=== PATIENT | female | born 1950 | race Caucasian/White ===

== ENCOUNTER → 2016-06-24 | Outpatient (CLI) | payer OTHER ==
--- NOTE | 2016-06-24 10:18 | MA ---
Screening Digital Mammogram With iCAD Analysis Clinical Indications: Routine screening. A daughter was diagnosed with breast cancer in her 40s. Technique: Standard cephalocaudal and mediolateral oblique projections were obtained. This examinatio n was processed by the iCAD computer aided detection system. Comparison: February 2015, January 2014, December 2012, September 2011, September 2010, September 2009, September 2008. Breast density: Type B; Scattered fibroglandular densities. Findings: CAD was reviewed. There is possible developing nodular opacity in the central anterior righ t breast. No suspicious microcalcifications are seen. The left breast is stable in appearance. Impression: Possible developing right breast nodule requires further evaluation, BI-RADS 0. Recommendation: Spot compression assessment of the right breast with ultrasound suggested if the abno rmality persists on diagnostic evaluation. [facility]–1983 will send a result letter to the patient. Negative mammography should not preclude additional workup of a clinically suspicious finding. The patient's information is entered into a reminder system with a target due date for her next mammo gram.
== END ==
LOC: BRMIMAGING 08:15
DX: Z12.31 Encounter for screening mammogram for malignant neoplasm of breast (principal); R92.8 Other abnormal and inconclusive findings on diagnostic imaging of breast; Z80.3 Family history of malignant neoplasm of breast
CPT/HCPCS: G0202

== ENCOUNTER → 2016-07-07 | Outpatient (CLI) | payer OTHER ==
--- NOTE | 2016-07-07 10:01 | US ---
1. Diagnostic Digital Right Mammogram with CAD History: Focal asymmetry retroareolar right breast. Daughter with breast cancer at age 42. Comparison: Screening mammogram June 24, 2016 and February 2015. Technique: A true lateral view and 2 spot films of the right breast. Density: B Findings: A nodular density does not persist in the retroareolar right breast however this is in an a micky of dense breast parenchyma, which could obscure an underlying abnormality. Considering the patien t's family history we will proceed to ultrasound. Impression: Negative diagnostic mammogram. Further imaging with ultrasound, which we will perform cody rtly. BI-RADS 0. Additional imaging of the right breast. 2. Right Breast Sonogram History: Possible retroareolar areolar focal asymmetry seen on screening mammography June 24 Findings: No cyst or solid lesion is identified beneath the right nipple and areolar area. No sonogra phic architectural distortion is identified. Impression: Negative sonogram and diagnostic mammogram. Recommendation: Return to screening mammography in one year. Results and recommendation were discussed with the patient in detail, who is in agreement with the pl an. BI-RADS 1. Negative.
== END ==
LOC: BRMIMAGING 09:06
DX: R92.2 Inconclusive mammogram (principal); Z80.3 Family history of malignant neoplasm of breast
CPT/HCPCS: 76641; G0206

== ENCOUNTER → 2017-07-23 | Outpatient (CLI) | payer OTHER | LOC: BRMIMAGING 08:09 | PROVIDERS: ATTEND Family Medicine | DX: Z12.31 Encounter for screening mammogram for malignant neoplasm of breast (principal); Z80.3 Family history of malignant neoplasm of breast ==

== ENCOUNTER → 2018-08-02 | Outpatient (CLI) | payer OTHER | LOC: BRMIMAGING 09:06 | PROVIDERS: ATTEND Family Medicine | DX: Z12.31 Encounter for screening mammogram for malignant neoplasm of breast (principal); Z80.3 Family history of malignant neoplasm of breast ==